=== PATIENT | male | born 1985 | race African-American/Black ===

== ENCOUNTER 2020-01-20 01:46 | Emergency (ER) | payer SELFPAY ==
[~2020-01-20] VITALS: Ht 177.8 cm; Wt 91.0 kg
[2020-01-20] MEDS ORDERED: ONDANSETRON HCL 4MG/2ML INJ IV STA (01:50)
[2020-01-20] MEDS ORDERED: MORPHINE SULFATE 4 MG/ML CPJ (NOT FOR IM USE) IV STA (01:50)
[2020-01-20] MEDS ORDERED: SODIUM CHLORIDE 0.9% 1,000 ML IV ONE (02:00)
[2020-01-20] MEDS ORDERED: TETANUS, DIPHTHERIA, PERTUSSIS VAC/PF 0.5ML (>7YR OLD) IM ONE (02:00)
[2020-01-20] MEDS ORDERED: CEFAZOLIN 1000MG PREMIX 50 ML IV ONE (02:00)
[2020-01-20 02:08] VITALS: BP 124/86
[2020-01-20 02:35] LABS: CHLORIDE 106 mEq/L (98-107)
[2020-01-20 02:38] LABS: HEMATOCRIT. 42.7 % (42.0-52.0); HEMOGLOBIN. 14.4 g/dL (14.0-18.0); LYMPHOCYTES % 46.2 % (20.0-50.0); MEAN CORPUSCULAR HEMOGLOBIN 31.8 pg (28.0-32.0); MONOCYTES % 10.9 % (2.0-8.0); NEUTROPHILS % 40.9 % (40.0-76.0); PARTIAL THROMBOPLASTIN TIME 24.2 sec (23.4-31.0); PLATELET 278 x1000/uL (130-400); PROTHROMBIN TIME 10.6 sec (9.6-11.0); RED BLOOD CELL COUNT 4.54 mill/uL (4.7-6.1); RED CELL DISTRIBUTION WIDTH 13.7 % (11.6-14.6)
== END 2020-01-20 02:36 | disposition short-term general hospital (02) ==
LOC: EDBD 01:46 → EDUNIT# 01:46 → ER 02:16
DX: S49.81XA Other specified injuries of right shoulder and upper arm, initial encounter (principal); Y93.39 Activity, other involving climbing, rappelling and jumping off; Y93.89 Activity, other specified; Y92.89 Other specified places as the place of occurrence of the external cause; Y99.8 Other external cause status; J45.909 Unspecified asthma, uncomplicated; F12.10 Cannabis abuse, uncomplicated
CPT/HCPCS: 36415; 80053; 83690; 85025; 85610; 85730; 86850; 86900; 86901; 90471; 90715; 96365; 96375; 99285; J0690; J2270; J2405; J7030